=== PATIENT | male | born 1970 ===

== ENCOUNTER 2022-01-21 06:52 | Day surgery (SDC) | payer BC ==
[~2022-01-21 06:52] MED LIST: Lactated Ringers 1,000 ML IV SCH; Sodium Chloride 0.9% 10 ML Syringe FLUSH PRN
[2022-01-21] MEDS ORDERED: Propofol 200 MG/20 ML SDV IV ONE (06:53)
[2022-01-21] MEDS ORDERED: Midazolam 1 MG/ML 2 ML SDV IV ONE (06:53)
[2022-01-21] MEDS ORDERED: Glycopyrrolate 0.2 MG/ML 5 ML MDV IV ONE (06:53)
[2022-01-21 09:48] VITALS: BP 143/93; PULSE 71
== END 2022-01-21 09:21 | disposition home or self-care (01) ==
LOC: FB.SDS 06:52
PROVIDERS: ATTEND Surgery
DX: K63.5 Polyp of colon (principal); I10 Essential (primary) hypertension; E21.0 Primary hyperparathyroidism; M19.90 Unspecified osteoarthritis, unspecified site; M17.9 Osteoarthritis of knee, unspecified; E66.9 Obesity, unspecified; E78.49 Other hyperlipidemia; G47.30 Sleep apnea, unspecified; G04.90 Encephalitis and encephalomyelitis, unspecified; Z90.49 Acquired absence of other specified parts of digestive tract; Z88.0 Allergy status to penicillin; Z98.890 Other specified postprocedural states; Z68.35 Body mass index [BMI] 35.0-35.9, adult; Z79.899 Other long term (current) drug therapy
CPT/HCPCS: 00812; 45385; 88305; J2250; J2704; J3490; J7120